=== PATIENT | male | born 2000 | race Caucasian/White ===

== ENCOUNTER 2022-09-20 07:25 | Outpatient (CLI) | payer OTHER ==
--- NOTE | 2022-09-20 10:10 | MRI Report ---
PROCEDURE: CERVICAL SPINE WO INDICATIONS: NECK PAIN TECHNIQUE: Noncontrast sagittal T1 spin echo and T2 fast spin echo, sagittal STIR, foraminal oblique sagittal T2 fast spin echo, and axial gradient echo or T2 fast spin echo through the cervical spine. COMPARISON: None. FINDINGS: Normal cervical spine vertebral body height and alignment. No suspicious focal marrow signal abnormal ity or bone marrow edema. No spinal canal or neural foraminal stenosis at any level. No significant d egenerative changes. Normal morphology and signal intensity of the cervical cord. Prevertebral and pa raspinous soft tissues are normal. IMPRESSION: Normal cervical spine MRI. Reviewed by: Luis Kern MD on 09/20/2022 10:08 AM [facility] Approved by: Luis Kern MD on 09/20/2022 10:08 AM PST Station ID: [id number]
== END 2022-09-20 07:26 | disposition home or self-care (01) ==
LOC: DI 07:25
PROVIDERS: ATTEND Nurse Practitioner
DX: M54.2 Cervicalgia (principal)